=== PATIENT | male | born 1945 | race Caucasian/White ===

== ENCOUNTER → 2017-05-26 | Outpatient (CLI) | payer MEDICARE, OTHER ==
--- NOTE | 2017-05-26 18:43 | PCVCIMAG ---
APPROVED REPORT Study performed: 05/26/2017 10:16:23 EXAM: Comprehensive 2D, Doppler, and color-flow Echocardiogram Status: routine Other Information Study Quality: Adequate Risk Factors: Cardiac Risk Factors: HTN Indications Atrial Fibrillation Cardiac Arrest 2D Dimensions LVEF(%): 51.07 (>50%) IVSd: 15.27 (7-11mm) LVDd: 51.24 mm PWd: 10.86 (7-11mm) LVDs: 37.82 (25-40mm) Left Atrium: 43.86 (27-40mm) Aortic Root: 29.76 mm LV Single Plane 4CH: 47.87 % LV Single Plane 2CH: 47.52 %[place]'s LVEF: 47.69 % Biplane EF: 49.2 % Volumes Left Atrial Volume (Systole) Single Plane 4CH: 95.59 mLSingle Plane 2CH: 95.98 mL LA ESV Index: 45.00 mL/m2 Aortic Valve AoV Peak Armani.: 1.18 m/s AO Peak Gr.: 5.56 mmHgLVOT Max P.08 mmHg LVOT Max V: 1.01 m/s Mitral Valve E/A Ratio: 1.3 MV Decel. Time: 234.77 ms MV E Max Armani.: 0.66 m/s MV A Armani.: 0.49 m/s IVRT: 93.43 ms TDI E/Lateral E': 9.50E/Medial E': 9.70 Pulmonary Valve PV Peak Armani.: 0.99 m/sPV Peak Gr.: 3.95 mmHg Pulmonary Vein P Vein S: 0.54 m/sP Vein A: 0.31 m/s P Vein D: 0.49 m/sP Vein A Dur.: 152.2 msec P Vein S/D Ratio: 1.10 Tricuspid Valve TR Peak Armani.: 2.62 m/s TR Peak Gr.: 27.40 mmHg Left Ventricle The left ventricle is normal size. There is normal LV segmental wall motion. Mildly increased septal wall thickeness in a ratio of 1.5/1.1 without obstruction. Left ventricular systolic function is normal. The left ventricular ejection fraction is within the normal range. LVEF is 50-55%. The left ventricular diastolic function is normal. Right Ventricle The right ventricle is normal size. The right ventricular systolic function is normal. Atria Left atrium is moderately dilated. Right atrium is moderately dilated. Aortic Valve The aortic valve is normal in structure. No aortic regurgitation is present. There is no aortic valvular stenosis. Mitral Valve The mitral valve is normal in structure. Mild mitral regurgitation. No evidence of mitral valve stenosis. Tricuspid Valve The tricuspid valve is normal in structure. Mild tricuspid regurgitation with PAP of 34 mmHg. Pulmonic Valve The pulmonary valve is normal in structure. There is no pulmonic valvular regurgitation. Great Vessels The aortic root is normal in size. IVC is normal in size and collapses with >50% inspiration Pericardium There is no pericardial effusion. <Conclusion> The left ventricle is normal size. Mildly increased septal wall thickeness in a ratio of 1.5/1.1 without obstruction. Left ventricular systolic function is normal. The left ventricular ejection fraction is within the normal range. LVEF is 50-55%. The left ventricular diastolic function is normal. The right ventricle is normal size. Left atrium is moderately dilated. Right atrium is moderately dilated. The aortic valve is normal in structure. Mild mitral regurgitation. Mild tricuspid regurgitation with PAP of 34 mmHg. There is no pericardial effusion.
== END | disposition home or self-care (01) ==
LOC: PCVCIMAG 10:03
PROVIDERS: ATTEND Internal Medicine Cardiovascular Disease
DX: I08.1 Rheumatic disorders of both mitral and tricuspid valves (principal); I48.0 Paroxysmal atrial fibrillation; I12.9 Hypertensive chronic kidney disease with stage 1 through stage 4 chronic kidney disease, or unspecified chronic kidney disease; N18.9 Chronic kidney disease, unspecified; I77.89 Other specified disorders of arteries and arterioles; E11.22 Type 2 diabetes mellitus with diabetic chronic kidney disease; E78.5 Hyperlipidemia, unspecified; I46.9 Cardiac arrest, cause unspecified; K21.9 Gastro-esophageal reflux disease without esophagitis; E87.5 Hyperkalemia; Z85.46 Personal history of malignant neoplasm of prostate; Z79.82 Long term (current) use of aspirin; Z79.4 Long term (current) use of insulin; Z79.899 Other long term (current) drug therapy
CPT/HCPCS: 80061; 93005; 93306; G0463

== ENCOUNTER → 2018-05-29 | Outpatient (CLI) | payer MEDICARE, OTHER | END | disposition home or self-care (01) | LOC: PCVCIMAG 09:26 | DX: I65.23 Occlusion and stenosis of bilateral carotid arteries (principal); I48.0 Paroxysmal atrial fibrillation; E11.9 Type 2 diabetes mellitus without complications; E78.00 Pure hypercholesterolemia, unspecified; I10 Essential (primary) hypertension; Z87.448 Personal history of other diseases of urinary system; Z86.74 Personal history of sudden cardiac arrest; Z79.82 Long term (current) use of aspirin; Z79.899 Other long term (current) drug therapy | CPT/HCPCS: 80061; 93005; 93880; G0463 ==

== ENCOUNTER → 2019-03-22 | Outpatient (CLI) | payer MEDICARE, OTHER ==
--- NOTE | 2019-03-23 10:30 | PCVCIMAG ---
APPROVED REPORT Study performed: 03/22/2019 11:05:46 EXAM: Comprehensive 2D, Doppler, and color-flow Echocardiogram Patient Location: Echo lab Room #: 2Status: routine BSA: 2.19 HR: 65 bpmBP: 104/50 mmHg Rhythm: NSR Other Information Study Quality: Adequate Risk Factors: Cardiac Risk Factors: HTN, Hyperlipidemia, DM Indications Atrial Fibrillation Hypertension/HDD 2D Dimensions IVSd: 9.03 (7-11mm)LVOT Diam: 20.73 (18-24mm) LVDd: 51.87 mm PWd: 9.75 (7-11mm)Ascending Ao: 30.15 (22-36mm) LVDs: 37.36 (25-40mm) Left Atrium: 40.67 (27-40mm) Aortic Root: 26.58 mm LV Single Plane 4CH: 58.00 % LV Single Plane 2CH: 70.00 % Biplane EF: 64.0 % Volumes Left Atrial Volume (Systole) Single Plane 4CH: 81.93 mLSingle Plane 2CH: 71.45 mL Biplane LA Volume: 78.00 mLLA ESV Index: 36.00 mL/m2 Aortic Valve AoV Peak Armani.: 1.41 m/s AO Peak Gr.: 8.00 mmHgLVOT Max P.00 mmHg LVOT Max V: 1.12 m/s DINO Vmax: 2.67 cm2 Mitral Valve E/A Ratio: 1.1 MV Decel. Time: 156.26 ms MV E Max Armani.: 0.76 m/s MV A Armani.: 0.68 m/s IVRT: 79.58 ms TDI E/Lateral E': 10.86E/Medial E': 9.50 Medial E' Armani.: 0.08 m/s Lateral E' Armani.: 0.07 m/s Pulmonary Valve PV Peak Armani.: 1.57 m/sPV Peak Gr.: 9.83 mmHg Pulmonary Vein P Vein S: 0.34 m/sP Vein A: 0.23 m/s P Vein D: 0.34 m/sP Vein A Dur.: 65.7 msec P Vein S/D Ratio: 1.00 Tricuspid Valve TR Peak Armani.: 2.58 m/s TR Peak Gr.: 26.63 mmHg TV Vmax: 0.69 m/sPA Pressure: 34.00 mmHg Left Ventricle The left ventricle is normal size. There is normal LV segmental wall motion. There is normal left ventricular wall thickness. Left ventricular systolic function is normal. The left ventricular ejection fraction is within the normal range. 55-60% The left ventricular diastolic function is normal. Right Ventricle The right ventricle is normal size. The right ventricular systolic function is normal. Atria Left atrium is mildly dilated. The right atrium size is normal. Aortic Valve Aortic valve is trileaflet. No aortic regurgitation is present. There is no aortic valvular stenosis. Mitral Valve The mitral valve is normal in structure. Trace mitral regurgitation. No evidence of mitral valve stenosis. Tricuspid Valve The tricuspid valve is normal in structure. Mild tricuspid regurgitation with a PA pressure of 34 mmHg. Mild pulmonary hypertension. Pulmonic Valve The pulmonary valve is normal in structure. There is no pulmonic valvular regurgitation. Great Vessels The aortic root is normal in size. The ascending aorta is normal in size. Aortic arch is not well visualized. IVC is normal in size and collapses >50% with inspiration. Pericardium There is no pericardial effusion. There is no pleural effusion. <Conclusion> The left ventricle is normal size. 55-60% The left ventricular diastolic function is normal. The right ventricle is normal size. Left atrium is mildly dilated. Aortic valve is trileaflet. Trace mitral regurgitation. Mild tricuspid regurgitation with a PA pressure of 34 mmHg. Mild pulmonary hypertension. The aortic root is normal in size. There is no pericardial effusion.
== END | disposition home or self-care (01) ==
LOC: PCVCIMAG 10:50
PROVIDERS: ATTEND Internal Medicine Cardiovascular Disease
DX: I08.8 Other rheumatic multiple valve diseases (principal); I48.0 Paroxysmal atrial fibrillation; E78.00 Pure hypercholesterolemia, unspecified; I12.9 Hypertensive chronic kidney disease with stage 1 through stage 4 chronic kidney disease, or unspecified chronic kidney disease; E11.22 Type 2 diabetes mellitus with diabetic chronic kidney disease; N18.9 Chronic kidney disease, unspecified; R33.9 Retention of urine, unspecified; K21.9 Gastro-esophageal reflux disease without esophagitis; Z79.82 Long term (current) use of aspirin
CPT/HCPCS: 36415; 80061; 93005; 93306; G0463